=== PATIENT | male | born 1960 | race Caucasian/White ===

== ENCOUNTER 2022-05-21 11:36 | Emergency (ER) | payer BC ==
[2022-05-21] MEDS ORDERED: KETOROLAC 15 MG/ML 1 ML VIAL IM STA (11:57)
--- NOTE | 2022-05-21 12:22 | XR ---
EXAMINATION TYPE: XR ankle complete bilateral DATE OF EXAM: 05/21/2022 12:16 PM INDICATION: Patient age:Male; 62 years old; Reason for study: laceration from chainsaw; [facility]. COMPARISON: None TECHNIQUE: The ankles were imaged in AP, oblique, and lateral projections. FINDINGS: There is no evidence of acute osseous pathology. The joint spaces are well-preserved without evidenc e of subluxation or dislocation. Kager's fat pad is intact. Soft tissue defect involving the posterio r lateral aspect of the left lower extremity No radiopaque foreign bodies are identified. IMPRESSION: 1. No evidence of acute fracture. No radiopaque foreign bodies. 2. Soft tissue laceration involving the posterior lateral aspect of the left lower extremity.
[2022-05-21] MEDS ORDERED: MORPHINE SULFATE 4 MG/ML SYRINGE IM STA (13:01)
[2022-05-21] MEDS ORDERED: LIDOCAINE 1% INJ 10MG/ML (30 ML VIAL-PF) SQ ONE (13:01)
[2022-05-21] MEDS ORDERED: ACET/COD 300 MG/30 MG STARTER PACK 6 TAB BTL PO STA (14:42)
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
[2022-05-21 14:51] VITALS: BP 164/88; PULSE 70; RESP 16; TEMP 98.6
[2022-05-21] MEDS ORDERED: DIPH,PERTUS(ACELL)TETVAC-LF 0.5 ML VIAL IM ONE (15:07)
== END 2022-05-21 15:12 | disposition home or self-care (01) ==
LOC: EC 11:36
DX: S81.812A Laceration without foreign body, left lower leg, initial encounter (principal); S80.811A Abrasion, right lower leg, initial encounter; W20.8XXA Other cause of strike by thrown, projected or falling object, initial encounter
CPT/HCPCS: 99283; 96372 ×2; 12004; 73610; J2270; J2001; J1885

== ENCOUNTER → 2023-03-30 | Outpatient (CLI) | payer BC ==
--- NOTE | 2023-03-30 18:32 | XR ---
EXAMINATION TYPE: XR chest 2V DATE OF EXAM: 03/30/2023 4:54 PM CLINICAL INDICATION:Male, 62 years old with history of J18.9 PNEUMONIA, UNSPECIFIED ORGANISM; [facility] COMPARISON: None TECHNIQUE: XR chest 2V Frontal and lateral views of the chest. FINDINGS: Lungs/Pleura: There is no evidence of pleural effusion, focal consolidation, or pneumothorax. Pulmonary vascularity: Unremarkable. Heart/mediastinum: Cardiomediastinal silhouette is unremarkable. Musculoskeletal: No acute osseous pathology. IMPRESSION: Low lung volumes with a generalized hazy appearance which could represent atelectasis. No consolidati on present.
== END | disposition home or self-care (01) ==
LOC: RADXRMAIN 16:44
PROVIDERS: ATTEND Family Medicine
DX: J18.9 Pneumonia, unspecified organism (principal)
CPT/HCPCS: 71046

== ENCOUNTER 2024-05-17 17:35 | Emergency (ER) | payer BC ==
[2024-05-17 17:51] VITALS: TEMP 98.4
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
[2024-05-17] MEDS: HYDROmorphone 1 MG/ML 1 ML SYRINGE IM STA (18:08)
--- NOTE | 2024-05-17 18:40 | XR ---
EXAMINATION TYPE: XR shoulder complete LT DATE OF EXAM: 05/17/2024 6:28 PM COMPARISON: None. CLINICAL INDICATION: Male, 64 years old with history of Fall, Pain TECHNIQUE: XR shoulder complete LT view(s) obtained. FINDINGS: The humeral head articulates with the glenoid. The acromio-clavicular junction is normal. No acute fractures or dislocations are evident. Calcified tendinosis with calcification is present within the distal supraspinatus tendon region. A follow up study can be performed 7-10 days from acute trauma for continued pain. MRI can be perfor med if soft tissue evaluation would be of benefit. IMPRESSION: 1. No acute osseous shoulder abnormality. 2. Calcified tendinosis [facility], , 05/17/2024 6:37 PM
[2024-05-17] MEDS: KETOROLAC 15 MG/ML 1 ML VIAL IVP STA ×2 (19:09→20:38)
[2024-05-17] MEDS: HYDROmorphone 1 MG/ML 1 ML SYRINGE IVP STA (19:09)
--- NOTE | 2024-05-17 20:06 | CT ---
EXAMINATION TYPE: CT shoulder LT wo con DATE OF EXAM: 05/17/2024 7:39 PM COMPARISON: None. CLINICAL INDICATION: Male, 64 years old with history of Fall, cannot move arm, normal x-ray, Pt comes in with c/o a fall and he landed on his left shoulder, pain and inability to raise it. TECHNIQUE: 3-D reconstruction images performed on a separate computer by the technologist are reviewe d. 2-D images in axial coronal and sagittal planes are reviewed. Contrast used: mL of , (none if empty) Oral contrast used: (none if empty) Axial images at 5 mm thick sections. Reconstructed images in the coronal and sagittal planes. FINDINGS: Humeral head articulates with the glenoid. There is a tiny ossification inferior to the glenoid could be a tiny avulsion. Series 201 image 40. No additional areas suspicious for fracture is evident. Acr omioclavicular junction is normal. Humeral neck and proximal diaphysis appears normal. Ribs appear in tact within the [id number]. Rotator cuff appears normal. No significant joint effusion is identified. Calcified tendinosis of the distal supraspinatus tendon is evident. No avulsion is identified from the humeral head. IMPRESSION: 1. TINY CALCIFICATION INFERIOR TO THE GLENOID COULD BE A SMALL AVULSION. 2. ROTATOR CUFF TEAR IS NOT GROSSLY IDENTIFIED ON CURRENT EXAMINATION. CALCIFIED TENDINOSIS OF THE DI STAL SUPRASPINATUS TENDON IS NOTED. MRI COULD BE PERFORMED FOR BETTER EVALUATION OF THE ROTATOR CUFF. [facility], , 05/17/2024 8:04 PM
[2024-05-17 20:37] VITALS: BP 122/68; PULSE 92; RESP 18
[2024-05-17] MEDS: HYDROmorphone 0.5 MG/0.5 ML SYRINGE IVP STA (20:37)
[2024-05-17] MEDS: ACET/COD 300 MG/30 MG STARTER PACK 6 TAB BTL PO STA (20:38)
== END 2024-05-17 20:48 | disposition home or self-care (01) ==
LOC: EC 17:35
DX: S43.402A Unspecified sprain of left shoulder joint, initial encounter (principal); W01.0XXA Fall on same level from slipping, tripping and stumbling without subsequent striking against object, initial encounter; Y93.H2 Activity, gardening and landscaping
CPT/HCPCS: 73030; 73200; 99284; 96374; 96375; 96376 ×2; 96372; J1171 ×2; J1885